=== PATIENT | male | born 1995 | race Caucasian/White ===

== ENCOUNTER 2019-04-08 06:50 | Emergency (ER) | payer BC ==
[~2019-04-08] VITALS: Ht 167.6 cm; Wt 70.4 kg
[2019-04-08 06:54] VITALS: BP 141/70; Ht 167.6 cm; Wt 70.4 kg
== END 2019-04-08 07:51 | disposition home or self-care (01) ==
LOC: ED 06:50
DX: S93.402A Sprain of unspecified ligament of left ankle, initial encounter (principal); X58.XXXA Exposure to other specified factors, initial encounter; Y93.89 Activity, other specified; Y92.89 Other specified places as the place of occurrence of the external cause; Y99.8 Other external cause status